=== PATIENT | male | born 1995 | race Hispanic/Latino ===

== ENCOUNTER 2017-05-22 00:04 | Emergency (ER) | payer SELFPAY ==
[2017-05-22 00:19] VITALS: BP 143/89; TEMP 98.3; O2SAT 97
--- NOTE | 2017-05-22 00:37 | ED.PDOC ---
History of Present Illness - General Chief Complaint: Syncope/Near Syncope Stated Complaint: Syncope Time Seen by Provider: 05/22/17 00:11 Source: patient, RN notes reviewed, Vital Signs reviewed, family Exam Limitations: no limitations - History of Present Illness Initial Comments: Patient comes to ER after having a syncopal episode ~ 1 hour prior to arrival. Reports she was driving back from [place] when his hands and feet started to go numb, began feeling nauseated and SOB. Pulled over and got out of the car to walk around to the passenger side and passed out. Per girlfriend he was out for ~15 seconds. He michael like he fell down and got right back up. He remembers his family helping him into the car and reports once he was laying down in the back he felt back to normal. He does report that last night he hit the back of his head on a counter. Has had a OSORIO since. He wonders if he may have had a panic attack. Currently he feels like himself. Timing/Prior Episodes: no prior history, single episode today Precipitating Factors: injury, nausea Loss of Consciousness: brief (seconds) Current Symptoms: back to normal Allergies/Adverse Reactions: Allergies NO KNOWN ALLERGY Allergy (Verified 05/22/17 00:19) Home Medications: Ambulatory Orders NK [NK] 05/22/17 Review of Systems - Review of Systems Constitutional: States: no symptoms reported EENTM: States: no symptoms reported Respiratory: States: no symptoms reported Cardiology: States: no symptoms reported Gastrointestinal/Abdominal: States: nausea Musculoskeletal: States: no symptoms reported Skin: States: no symptoms reported Neurological: States: see HPI, headache, numbness, tingling, other - syncope All other Systems: No Change from Baseline Past Medical History (General) - Patient Medical History Hx Seizures: No Hx Stroke: No Hx Dementia: No Hx Asthma: No Hx of COPD: No Hx Cardiac Disorders: No Hx Congestive Heart Failure: No Hx Pacemaker: No Hx Hypertension: No Hx Thyroid Disease: No Hx Diabetes: No Hx Gastroesophageal Reflux: No Hx Renal Disease: No Hx Cancer: No Hx of HIV: No Hx Hepatitis C: No Hx MRSA: No Surgical History: tonsillectomy - Vaccination History Hx Tetanus, Diphtheria Vaccination: Yes Hx Influenza Vaccination: No Hx Pneumococcal Vaccination: No Immunizations Up to Date: Yes - Social History Hx Tobacco Use: No Hx Alcohol Use: Yes Physical Exam - Physical Exam General Appearance: Alert, Comfortable, No apparent distress, Well Developed, Well Groomed, Well Hydrated, Well Nourished Eyes, Ears, Nose, Throat Exam: PERRL/EOMI, normal ENT inspection, pharynx normal Neck: non-tender, full range of motion, supple, normal inspection Cardiovascular/Respiratory: regular rate, rhythm, no M/R/G, normal breath sounds , no respiratory distress Extremity: normal range of motion, normal inspection Mental Status: alert, oriented x 3 coupler Exam: normal hearing, normal speech, PERRL, other - CN 2-12 grossly intact Coordination/Gait: normal gait Motor/Sensory: no motor deficit, no sensory deficit, no pronator drift, other - Sensation intact and equal throughout, strength 5/5 throughout Skin Exam: normal color, warm/dry Comments: Vital Signs 05/22/17 00:16 Temperature 98.3 F Pulse Rate [ 88 Right radial] Respiratory 18 Rate Blood Pressure 143/89 [Left Arm] O2 Sat by Pulse 97 Oximetry Progress - EKG/XRAY/CT CT Ordered: Yes - No acute intracranial abnormaility per Rad Departure - Departure Clinical Impression: Syncope Qualifiers: Syncope type: vasovagal syncope Qualified Code(s): R55 - Syncope and collapse Time of Disposition: 01:22 Disposition: Discharge to Home or Self Care Condition: Good Departure Forms: ED Discharge - Pt. Copy, Patient Portal Self Enrollment Instructions: DI for Syncope in Adults (Fainting) Diet: resume usual diet Activity: increase activity as tolerated Referrals: MILLA HIGHTOWER [Nurse Practitioner] - 1-2 Weeks Home Medications: Ambulatory Orders NK [NK] 05/22/17
--- NOTE | 2017-05-22 01:03 | CT ---
EXAM: Head CLINICAL INDICATION: 21 year-old male, hit back of head, syncopal episode. COMPARISON: None. TECHNIQUE: CT brain without contrast. This exam was performed according to our departmental dose optimization program which includes use of automated exposure control, adjustment of the mA and/or kV according to patient size and/or use of iterative reconstruction technique. FINDINGS: The ventricles, sulci, and cisterns are within normal limits. The haro-white matter differentiation is preserved. There is no mass effect, midline shift, intra- or extra-axial fluid collection/acute hemorrhage. The osseous structures are unremarkable. The paranasal sinuses and mastoid air cells are clear. IMPRESSION: No acute intracranial abnormalities. Electronically signed by: Honey Melendez MD 05/22/2017 1:02 AM CDT Workstation: [id number]
== END 2017-05-22 01:32 | disposition home or self-care (01) ==
LOC: ER 00:04
DX: R55 Syncope and collapse (principal)